=== PATIENT | female | born 1975 | race Caucasian/White ===

== ENCOUNTER 2016-07-01 08:42 | Observation (INO) | payer OTHER ==
--- NOTE | ~2016-07-01 | EGD ---
EGD REPORT [facility] [address] [address] NAME: MAU ALEXANDER : [birth year] STATUS : REG [facility] [place] PAT#: [id number] AGE: 40 ADM/REG DATE : 07/01/16 MR#: [id number] REPORT SERV DATE: 07/01/16 DICTATED BY: THANG MCCLELLAN DATE: 07/01/16 REPORT STATUS : Draft TRANSCRIBED BY: [facility] DATE: 07/01/16 Endoscopy Center Patient Name: Mau Alexander Date of : 1975 Attending MD: THANG MCCLELLAN, Procedure Date No Time: 07/01/2016 Procedure: Upper GI endoscopy Indications: For therapy of gastric polyps Referring MD: BRUCE OVALLE, RABIA QUILES MD Medicines: Monitored Anesthesia Care Complications: Moderate bleeding Procedure: After obtaining informed consent, the endoscope was passed under direct vision. Throughout the procedure, the patient's blood pressure, pulse, and oxygen saturations were monitored continuously. The GIF [id number] was introduced through the mouth, and advanced to the second part of duodenum. The upper GI endoscopy was accomplished without difficulty. The patient tolerated the procedure well. Findings: The esophagus was normal. Multiple 10 to 25 mm sessile fundic gland polyps with no bleeding and no stigmata of recent bleeding were found in the gastric body. These polyps were removed with a hot snare. Polyp resection was incomplete probably only one third of the polyps were removed when the site started bleeding. The resected tissue was retrieved. There was bleeding at polypectom site. Area was successfully injected with 14 mL of a 1:10,000 solution of epinephrine for hemostasis. Four hemostatic clips were successfully placed. There was no bleeding at the end of the maneuver. The exam was otherwise without abnormality. The examined duodenum was normal. Impression: - Normal esophagus. - Multiple fundic gland polyps. Incomplete resection. Resected tissue retrieved. Injected. Clips were placed. - The examination was otherwise normal. - Normal examined duodenum. Recommendation: - Patient has a contact number available for emergencies. The signs and symptoms of potential delayed complications were discussed with the patient. Return to normal activities tomorrow. Written discharge instructions were provided to the patient. - NPO. EGD REPORT [address] [address] NAME: MAU ALEXANDER : [birth year] STATUS : REG [facility] [place] PAT#: [id number] AGE: 40 ADM/REG DATE : 07/01/16 MR#: [id number] REPORT SERV DATE: 07/01/16 DICTATED BY: THANG MCCLELLAN DATE: 07/01/16 REPORT STATUS : Draft TRANSCRIBED BY: [employer] DATE: 07/01/16 - Continue present medications. - Admit for observation. Procedure Code(s): --- Professional --- 44662, Esophagogastroduodenoscopy, flexible, transoral; with removal of tumor(s), polyp(s), or other lesion(s) by snare technique Diagnosis Code(s): --- Professional --- K31.7, Polyp of stomach and duodenum K91.61, Intraoperative hemorrhage and hematoma of a digestive system organ or structure complicating a digestive sytem procedure CPT copyright 2013 [employer]. All rights reserved. The codes documented in this report are preliminary and upon equipment analyst review may be revised to meet current compliance requirements. THANG MCCLELLAN, 07/01/2016 11:59 AM Number of Addenda: 0 Note Initiated On: 07/01/2016 11:19 AM Scope Withdrawal Time 0 hours 0 minutes 0 seconds [id number] [id number]
--- NOTE | ~2016-07-01 | HP ---
History And Physical [address] [place]. [address] NAME: MAU RODRIGUEZ : [birth year] STATUS : ADM William PAT#: [id number] AGE: 40 ADM/REG DATE : 07/01/16 MR#: [id number] REPORT SERV DATE: 07/02/16 DICTATED BY: EDNA ROCKWELL DATE: 07/02/16 REPORT STATUS : Draft TRANSCRIBED BY: MODAdiel DATE: 07/02/16 DATE OF ADMISSION: 07/01/2016 CHIEF COMPLAINT: Postop bleeding. HISTORY OF PRESENT ILLNESS: The patient is a 40-year-old, female with history of familial adenomatous polyposis (FAP), PCOS, and hypothyroidism who has been under care Dr. Trujillo, transferred care to Dr. Aceves for familial adenomatous polyposis, and was undergoing second EGD this year for polyp removal, intraoperatively was noted to have significant bleeding, requiring epinephrine with good resolution. However, due to the amount of blood, the patient was recommended to be evaluated for observation overnight as the patient did have clips and placed on Protonix drip, serial CBC, n.p.o. Currently. The patient is clinically feeling okay, did have some mild mid chest pain, that is not radiating. No nausea or vomiting. Does have a thirst-type feeling, but no other discomfort. Mild sinus discomfort. No additional chest pain cardiac in nature or shortness of breath. No leg pain, headaches, hemoptysis, or GI bleed. The patient reports nothing makes symptoms worse or improved. Symptoms are mild to moderate. REVIEW OF SYSTEMS: A 10-point review of systems negative, for that noted in HPI. PAST MEDICAL HISTORY: The patient has history of familial adenomatous polyposis, PCOS, and hypothyroidism. PAST SURGICAL HISTORY: Gallbladder, breast reduction, tonsils and adenoids, and prior polyp removal. SOCIAL HISTORY: No smoking. Rare alcohol. No illicits. FAMILY HISTORY: Colon cancers in paternal side. Multiple members with diabetes type 2. ALLERGIES: LATEX, EGG, EUCALYPTUS, AND MENTHOL. MEDICATIONS: Wellbutrin, Os-Chago, Kala, Synthroid, Cytomel, Claritin, Fortamet, multivitamin, Prilosec, Inderal, vitamin E, and probiotics. PHYSICAL EXAMINATION: VITAL SIGNS: Blood pressure 136/86, pulse 71, temperature 98.3, respirations 16, O2 saturations 96% on room air. GENERAL: In no acute distress, obese, well-developed, and well nourished. EYES: No scleral icterus. EOMI. ENT: Nares patent. Tongue midline. NECK: No JVD. Supple. CHEST: Equal chest expansion. No increased AP diameter. RESPIRATORY: Clear to auscultation. No wheezes, or rales. CV: Regular rate. No rubs or gallops. No holosystolic murmur. Cap refill less than 2 History And Physical [address] [address] NAME: MAU RODRIGUEZ : [birth year] STATUS : ADM William PAT#: [id number] AGE: 40 ADM/REG DATE : 07/01/16 MR#: [id number] REPORT SERV DATE: 07/02/16 DICTATED BY: EDNA ROCKWELL DATE: 07/02/16 REPORT STATUS : Draft TRANSCRIBED BY: MODL DATE: 07/02/16 seconds. MUSCULOSKELETAL: Moves all extremities x4. Symmetrical strength in upper and lower extremities. ABDOMEN: Soft, nontender, and nondistended. Bowel sounds positive. Negative rebound. Mild midepigastric discomfort. : Deferred. NEURO: Alert and oriented. Symmetrical strength. Symmetrical vocal marcus. Symmetrical smile. Normal vocal marcus. PSYCH: Appropriate mood and affect. SKIN: Warm and dry. LABORATORY DATA: test negative. Glucose 79. CBC gross 8, WBC 7.5, H and H 12 and 35.4, and platelets 295. ASSESSMENT: 1. Postop bleed. 2. Familial adenomatous polyposis. 3. Polycystic ovary syndrome. 4. Hypothyroidism. PLAN: 1. For of postop bleed, PPI drip and n.p.o. Monitor serial H and H, secondary to polyp removal requiring epinephrine and clips, and has a familial adenomatous polyposis. Type and cross. Transfuse, if hemoglobin less than 8. 2. Familial adenomatous polyposis, tubular adenoma with dysplasia and prior pathology biopsies, monitor with GI. 3. PCOS on metformin, hold currently while inpatient. 4. Hypothyroidism, on replacement. DDN/MODL Edna Rockwell MD / [id number] CC: MD Navdeep Ivy M.D.
--- NOTE | ~2016-07-01 | DS ---
Discharge Summary [address] [place]. [address] NAME: MAU RODRIGUEZ : [birth year] STATUS : DIS William PAT#: [id number] AGE: 40 ADM/REG DATE : 07/01/16 MR#: [id number] REPORT SERV DATE: 07/02/16 DICTATED BY: SANDRA TONY DATE: 07/02/16 REPORT STATUS : Draft TRANSCRIBED BY: MODL DATE: 07/02/16 ADMISSION DATE: 07/01/2016 DISCHARGE DATE: 07/02/2016 REASON FOR ADMISSION: Postop bleeding. HISTORY OF PRESENT ILLNESS: Please refer to Dr. Brady Trujillo's history and physical dated 07/02/2016 for complete details regarding the patient's admission. In brief, the patient has a history of familial adenomatous polyposis and had an EGD done by Dr. Aceves on 07/01/2016 that resulted in bleeding. The patient was admitted to the observation to monitor hemoglobin. HOSPITAL COURSE: The patient had an uncomplicated hospital course. Dr. Aceves had performed an EGD as an outpatient, which showed a normal esophagus, multiple fundic gland polyps that were incompletely resected, resected tissue was retrieved, injected and clips were placed. Normal exam duodenum. There was some bleeding during the procedure. Dr. Aceves had requested to have the patient be admitted and observed for 24 hours. Her hemoglobin has been stable at 12 with no blood loss. She does not have any nausea, vomiting, or abdominal pain. She had normal bowel movements. She will be discharged later today if okay by Dr. Aceves. DISCHARGE DIAGNOSES: Postop bleeding, now resolved. Familial adenomatous polyposis. Polycystic ovarian syndrome. PROCEDURES: Serial hemoglobins. DISCHARGE MEDICATIONS: Include Wellbutrin 150 mg twice a day, Os-Chago daily, Synthroid 50 mcg every morning, Cytomel 10 mcg every morning, Claritin daily, multivitamin daily, Inderal 40 mg twice a day, vitamin E at bedtime, metformin 500 mg at bedtime, Prilosec 40 mg at bedtime, Kala daily, probiotic. DISCHARGE PLAN: The patient will follow up with Dr. Aceves as scheduled. BETO/VERONICA Sandra Tony MD / [id number] CC: MD Navdeep Tello M.D. Gregory Olds, MD
--- NOTE | ~2016-07-01 | CN ---
Consultation Report [facility] [address] [place]. [address] NAME: MAU ALEXANDER : [birth year] STATUS : ADM William PAT#: [id number] AGE: 40 ADM/REG DATE : 07/01/16 MR#: [id number] REPORT SERV DATE: 07/02/16 DICTATED BY: ROSS ACEVES DATE: 07/01/16 REPORT STATUS : Draft TRANSCRIBED BY: MODL DATE: 07/01/16 DATE OF CONSULTATION: REASON FOR CONSULTATION: GI bleeding. HISTORY OF PRESENT ILLNESS: Ms. Alexander is a 40-year-old with a known history of multiple colon adenomas in the past, recently underwent an upper endoscopy by Dr. Trujillo and was noted to have multiple fundic gland polyps and there was some low-grade dysplasia noted. The patient was seen in clinic and discussed removing these or as many of these as possible. I did do an upper endoscopy today where the patient is noted to have multiple polyps throughout the stomach. I removed the proximal approximately 1/3 of these. During the procedure, the patient had some significant bleeding that required hemostasis with epinephrine and clips and with cessation of bleeding, the patient was to be admitted to observe her for any further signs of GI bleeding. PAST MEDICAL HISTORY: Includes reflux, PACs, PCOS. ALLERGIES: INCLUDE LATEX, EGG, EUCALYPTUS, MENTHOL. MEDICATIONS: Biotin, calcium, fiber, ibuprofen, Metamucil, metformin, multivitamin, omeprazole, probiotic, propranolol, Synthroid, , Wellbutrin. SOCIAL HISTORY: She does not currently smoke. Rare alcohol. REVIEW OF SYSTEMS: A 10-point review systems was reviewed and was negative unless mentioned in the HPI. ASSESSMENT: 1. Gastrointestinal bleeding after polypectomy of large multiple fundic gland polyps. At this point, we will admit the patient to discuss with Dr. Trujillo. I have started the patient on a Protonix drip and keep her n.p.o. Overnight. Should she have any further bleeding. We will follow serial hemoglobin and go from there. Thank you. GO/MODL Ross Aceves MD / [id number] CC: Consultation Report [address] [address] NAME: MAU ALEXANDER : [birth year] STATUS : ADM William PAT#: [id number] AGE: 40 ADM/REG DATE : 07/01/16 MR#: [id number] REPORT SERV DATE: 07/02/16 DICTATED BY: ROSS ACEVES DATE: 07/01/16 REPORT STATUS : Draft TRANSCRIBED BY: VERONICA DATE: 07/01/16 MD Navdeep Ivy M.D.
[~2016-07-01 08:42] MED LIST: BEYAZ 28 TABLE1 EACH PO; CLARIT10 PO; CYTO5 PO; FORTAMET500 MG PO; I40 PO; MULTIVIT/MIN PO; OS500+D PO; PRILOSEC40 MG PO; PROBIOTIC PO; SYN.05 PO; VITE1000 PO; WELLSR150 PO; YAZ1 TAB PO; [UNRECOGNIZED DRUG - OTHER] PO
[2016-07-01 12:16] LABS: BASOPHILS 0.3 %; BASOPHILS ABSOLUTE 0.02 10/3/uL (0.0-0.16); EOSINOPHILS 1.6 %; EOSINOPHILS ABSOLUTE 0.12 10/3/uL (0.0-0.53); HEMATOCRIT 35.4 % (36.0-48.0); IMMATURE GRANULOCYTES 0.1 %; IMMATURE GRANULOCYTES ABSOLUTE 0.01 10/3/uL (0.0-0.11); LYMPHOCYTES 37.1 %; LYMPHOCYTES ABSOLUTE 2.77 10/3/uL (0.67-4.30); MANUAL DIFF NO %; MEAN CORPUS HGB CONC 33.9 g/dL (32.0-36.0); MEAN CORPUSCULAR HEMOGLOB 29.6 pg (26.0-34.0); MEAN CORPUSCULAR VOLUME 87.2 fL (80-100); MEAN PLATELET VOLUME 9.8 fL (9.2-13.0); MONOCYTES 7.5 %; MONOCYTES ABSOLUTE 0.56 10/3/uL (0.21-1.20); NEUTROPHILS 53.4 %; NEUTROPHILS ABSOLUTE 3.99 10/3/uL (2.02-8.40); PLATELET COUNT 295 10/3/uL (150-400); RBC DISTRIBUTION WIDTH 13.7 % (12.0-16.0); RED CELL COUNT 4.06 10/6/uL (4.0-5.6); WHITE BLOOD CELLS 7.5 10/3/uL (4.5-10.5)
[2016-07-01 20:24] LABS: HEMATOCRIT 34.9 % (36.0-48.0); HEMOGLOBIN 11.8 g/dL (12.0-16.0)
[2016-07-02 05:42] LABS: BUN (BLOOD UREA NITROGEN) 8 MG/DL (6-23); CALCIUM, SERUM 8.3 MG/DL (8.5-10.4); CHLORIDE, SERUM 110 MMOL/L (96-112); CO2 (CARBON DIOXIDE) 24 MMOL/L (24-34); CREATININE 0.69 MG/DL (0.55-1.02); GFR AFRICAN AMERICAN 128 ML/MIN (>=60); GFR NON AFRICAN AMERICAN 110 ML/MIN (>=60); GLUCOSE, SERUM 83 MG/DL (60-99); POTASSIUM, SERUM 3.6 MMOL/L (3.5-5.3); SODIUM, SERUM 143 MMOL/L (135-148)
[2016-07-02 07:43] LABS: BASOPHILS 0.1 %; BASOPHILS ABSOLUTE 0.01 10/3/uL (0.0-0.16); EOSINOPHILS 1.4 %; HEMATOCRIT 35.1 % (36.0-48.0); HEMOGLOBIN 11.9 g/dL (12.0-16.0); IMMATURE GRANULOCYTES 0.3 %; IMMATURE GRANULOCYTES ABSOLUTE 0.02 10/3/uL (0.0-0.11); LYMPHOCYTES ABSOLUTE 2.08 10/3/uL (0.67-4.30); MEAN CORPUS HGB CONC 33.9 g/dL (32.0-36.0); MEAN CORPUSCULAR HEMOGLOB 29.6 pg (26.0-34.0); MEAN CORPUSCULAR VOLUME 87.3 fL (80-100); MEAN PLATELET VOLUME 9.6 fL (9.2-13.0); MONOCYTES 8.1 %; MONOCYTES ABSOLUTE 0.58 10/3/uL (0.21-1.20); NEUTROPHILS 61.1 %; NEUTROPHILS ABSOLUTE 4.39 10/3/uL (2.02-8.40); PLATELET COUNT 261 10/3/uL (150-400); RBC DISTRIBUTION WIDTH 13.4 % (12.0-16.0); RED CELL COUNT 4.02 10/6/uL (4.0-5.6); WHITE BLOOD CELLS 7.2 10/3/uL (4.5-10.5)
[2016-07-02 07:44] LABS: MANUAL DIFF NO %
[2016-07-02 11:24] LABS: HEMATOCRIT 34.5 % (36.0-48.0); HEMOGLOBIN 11.6 g/dL (12.0-16.0)
== END 2016-07-02 13:07 | disposition home or self-care (01) ==
LOC: DMU 08:42 → SDC/OF 14:19 → 4SO 15:49
PROVIDERS: Internal Medicine Gastroenterology; Student in an Organized Health Care Education/Training Program
PROC: 0DB68ZX Excision of Stomach, Via Natural or Artificial Opening Endoscopic, Diagnostic (ICD-10-PCS; principal; 2016-07-01 10:30)
DX: K31.7 Polyp of stomach and duodenum (principal); E66.01 Morbid (severe) obesity due to excess calories; G43.909 Migraine, unspecified, not intractable, without status migrainosus; E03.9 Hypothyroidism, unspecified; Z68.41 Body mass index [BMI] 40.0-44.9, adult; Z98.890 Other specified postprocedural states; Z91.040 Latex allergy status; Z88.1 Allergy status to other antibiotic agents; Z91.012 Allergy to eggs; Z87.891 Personal history of nicotine dependence
CPT/HCPCS: 36415; 80048; 82962; 84703; 85014; 85018; 85025; 86850; 86900; 86901; 88305; 96374; 96376; A9270-GY; C9113; G0378; J2405